=== PATIENT | female | born 1950 | race Caucasian/White ===

== ENCOUNTER 2017-07-24 14:57 | Emergency (ER) | payer OTHER ==
[~2017-07-24] VITALS: Ht 154.9 cm; Wt 48.1 kg
[~2017-07-24 14:57] MED LIST: DICYCLOMINE HCL10 MG PO; FLUOXETINE PO; MULTI-DAY VITA1 EACH PO; OMEPRAZOLE20 MG PO; PERCOCET 5-3251 EACH PO; PROBIOTIC & AC1 EACH PO; PROZAC20 MG PO; VITAMIN D35000 UNIT PO
== END 2017-07-24 20:25 | disposition home or self-care (01) ==
LOC: ER 14:57
DX: K52.9 Noninfective gastroenteritis and colitis, unspecified (principal); K64.4 Residual hemorrhoidal skin tags